=== PATIENT | female | born 1960 | race Caucasian/White ===

== ENCOUNTER 2017-10-31 08:30 | Emergency (ER) | payer BC ==
[~2017-10-31] VITALS: Ht 162.6 cm; Wt 84.0 kg
[~2017-10-31 08:30] MED LIST: CLIN300C10 PO; CLR10 PO; DEXA6TAB PO; LCTX PO; NYSS5 PO; RANI150S PO; TYLOTC500 PO; [UNRECOGNIZED DRUG - CODE] PO
[2017-10-31 08:33] VITALS: TEMP 36.4; Ht 162.6 cm; Wt 84.0 kg
[2017-10-31] MEDS ORDERED: FENTANYL CITRATE INJ 50 MCG/1 ML 2 ML VIAL IV STA (08:53)
[2017-10-31] MEDS ORDERED: DEXAMETHASONE SOD INJ 4 MG/ML VIAL IV STA (08:53)
[2017-10-31] MEDS ORDERED: SODIUM CHLORIDE 0.9% 1000ML 1,000 ML IV STA (08:53)
[2017-10-31] MEDS ORDERED: OPTIRAY 320 IV PRN (09:15)
[2017-10-31 09:34] LABS: BASO % 0.2 %; BASO ABS # 0.03 K/uL (0-0.2); COMPLETE YES; EOS % 1.5 %; HEMATOCRIT 50.6 % (37-47); IG% 0.2 %; LYMPH % 22.9 %; MEAN CELL VOLUME 92.2 fL (80-100); MEAN CORPUSCULAR HEMOGLOBIN 32.4 pg (25-34); MEAN CORPUSCULAR HGB CONC 35.2 g/dl (32-36); MEAN PLATELET VOLUME 8.8 fL (7.4-10.4); MONO % 5.9 %; NEUT % 69.3 %; PLATELET COUNT 378 K/uL (130-400); RED BLOOD COUNT 5.49 M/uL (4.2-5.4); WHITE BLOOD COUNT 12.65 K/uL (4.8-10.8)
--- NOTE | 2017-10-31 09:38 | EMERGENCY ROOM VISIT NOTE ---
History First contact with patient: 08:37 Chief Complaint: THROAT PAIN/INJURY Stated Complaint: THROAT TEARS History of Present Illness The patient is a 57 year old female who presents to the Emergency Room with complaints of sore throat. Pt states she had some mild throat irritation for the past 3 weeks that she attributed to sinus drainage,she treated herself at home with lozenges and salt water gargles, and her symptoms seemed to be improving. 4 days ago, the right side of her throat started to bother her, and has become progressively worse and severely painful. She also feels that her voice has become muffled since yesterday. She states the pain is now constant, worse with eating/drinking, talking, opening her mouth, unrelieved with Tylenol and Motrin, 06/21. Patient reports a history of peritonsillar abscess on the right side 2 years ago that required an inpatient hospital stay, she is concerned about this. She denies any fever/chills, headache, neck pain or stiffness, throat swelling, chest pain, difficulty breathing, nausea or vomiting , abdominal pain, diarrhea, urinary symptoms, rash. Review of Systems A complete 10 point review of systems was reviewed with the patient with pertinent positives and negatives as per history of present illness. All else were negative. Past Medical/Surgical History Hyperlipidemia, migraines, peritonsillar abscess Tubal ligation Social History Smoking Status: Current Every Day Smoker Alcohol Use: none Drug Use: none Marital Status: Housing Status: lives with family Occupation Status: employed Current/Historical Medications Scheduled Ondasetron Odt (Zofran Odt), 4 MG SL Q6H Prednisone (Prednisone Tab), 40 MG PO DAILY Scheduled PRN Hydrocodone/Acetaminophen 5MG/325MG ([place] 5MG/325MG), 1-2 TABLET PO Q6H PRN for svr Allergies Reviewed in chart Physical Exam Vital Signs Date Time Temp Pulse Resp B/P (MAP) Pulse Ox O2 Delivery O2 Flow Rate FiO2 10/31/17 11:40 77 17 117/87 95 10/31/17 10:26 69 18 113/80 95 Room Air 10/31/17 09:15 98 Room Air 10/31/17 08:36 98 Room Air 10/31/17 08:33 36.4 95 20 112/85 98 Room Air Physical Exam CONSTITUTIONAL: No acute distress. Moderately dehydrated. Pleasant and cooperative. HEENT: Normocephalic, atraumatic. Pupils equal, round and reactive to light, EOMI. TMs normal. Pharynx is erythematous, no tonsillar edema, exudate, unilateral swelling, uvular deviation, or trismus noted. Patient's voice does sound slightly muffled. Dry mucus membranes. NECK: Supple, full active range of motion without discomfort. Right-sided cervical adenopathy, tender to palpation. RESPIRATORY: Clear to auscultation bilaterally with no wheezing, crackles, rhonchi or stridor. Equal expansion bilaterally. CARDIOVASCULAR: Regular rate and rhythm with no murmurs, rubs or gallops. Normal peripheral perfusion. No edema. GASTROINTESTINAL: Soft, nontender, nondistended. No palpable masses or HSM. Bowel sounds present in all quadrants. MUSCULOSKELETAL: Full range of motion of all joints without discomfort. INTEGUMENTARY: No rash or other significant dermatologic conditions noted. NEUROLOGIC: Alert and oriented X 4 with normal affect. Cranial nerves II-XII grossly intact. No focal neurologic deficits noted. [] Medical Decision & Procedures ER Provider Diagnostic Interpretation: CT OF THE NECK WITH CONTRAST CLINICAL HISTORY: Severe right-sided sore throat. Evaluate for retropharyngeal abscess. COMPARISON STUDY: CT of the neck April 17, 2014. TECHNIQUE: Axial images of the neck were obtained following intravenous injection of 93 cc Optiray 320 IV. FINDINGS: Visualized portions of the intracranial contents are unremarkable. The epiglottis is normal. There is tonsillar mucosal hyperenhancement, greater on the right. There is mild adjacent edema within the right peritonsillar soft tissues. There is no abscess. There is slight asymmetric enlargement of the right submandibular gland. A few mildly enlarged bilateral level 2 cervical lymph nodes measure up to 1.2 cm in short axis diameter. There is no abscess within the neck. Thyroid gland is unremarkable. 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 There is distal reconstitution. Mild emphysema is noted within visualized portions of the lungs with an 8 mm subpleural right upper lobe nodule shown image 278. Small amount of secretions within the trachea are noted. IMPRESSION: 1. Tonsillar mucosal enhancement, greater on the right, with mild right peritonsillar edema. No abscess. The findings suggest acute tonsillitis. 2. 8 mm subpleural right upper lobe nodule. A follow-up chest CT in 6 months to ensure stability is recommended. 3. Mild to moderate centrilobular and paraseptal emphysema. 4. 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 Laboratory Results 10/31/17 09:15 Red Blood Count 5.49, Mean Corpuscular Volume 92.2, Mean Corpuscular Hemoglobin 32.4, Mean Corpuscular Hemoglobin Concent 35.2, Mean Platelet Volume 8.8, Neutrophils (%) (Auto) 69.3, Lymphocytes (%) (Auto) 22.9, Monocytes (%) (Auto) 5.9, Eosinophils (%) (Auto) 1.5, Basophils (%) (Auto) 0.2, Neutrophils # (Auto) 8.75, Lymphocytes # (Auto) 2.90, Monocytes # (Auto) 0.75, Eosinophils # (Auto) 0.19, Basophils # (Auto) 0.03 10/31/17 09:15 Test 10/31/17 09:15 10/31/17 09:24 White Blood Count 12.65 K/uL (4.8-10.8) Red Blood Count 5.49 M/uL (4.2-5.4) Hemoglobin 17.8 g/dL (12.0-16.0) Hematocrit 50.6 % (37-47) Mean Corpuscular Volume 92.2 fL (80-100) Mean Corpuscular Hemoglobin 32.4 pg (25-34) Mean Corpuscular Hemoglobin Concent 35.2 g/dl (32-36) Platelet Count 378 K/uL (130-400) Mean Platelet Volume 8.8 fL (7.4-10.4) Neutrophils (%) (Auto) 69.3 % Lymphocytes (%) (Auto) 22.9 % Monocytes (%) (Auto) 5.9 % Eosinophils (%) (Auto) 1.5 % Basophils (%) (Auto) 0.2 % Neutrophils # (Auto) 8.75 K/uL (1.4-6.5) Lymphocytes # (Auto) 2.90 K/uL (1.2-3.4) Monocytes # (Auto) 0.75 K/uL (0.11-0.59) Eosinophils # (Auto) 0.19 K/uL (0-0.5) Basophils # (Auto) 0.03 K/uL (0-0.2) RDW Standard Deviation 46.6 fL (36.4-46.3) RDW Coefficient of Variation 13.8 % (11.5-14.5) Immature Granulocyte % (Auto) 0.2 % Immature Granulocyte # (Auto) 0.03 K/uL (0.00-0.02) Est Creatinine Clear Calc Drug Dose 99.5 ml/min Estimated GFR () 114.7 Estimated GFR (Non- 99.0 BUN/Creatinine Ratio 7.7 (10-20) Calcium Level 8.7 mg/dl (8.5-10.1) Monoscreen NEG (NEG) Bedside Hemoglobin 16.7 g/dl (12.0-16.0) Bedside Hematocrit 49 % (37-47) Bedside Sodium 141 mEq/L (135-144) Bedside Potassium 3.9 mEq/L (3.3-5.0) Bedside Chloride 103 mEq/L (101-112) Bedside Total CO2 27 mEq/l (24-31) Anion Gap 16.0 mmol/L (16-25) Bedside Blood Urea Nitrogen 3 mg/dl (7-18) Bedside Creatinine 0.7 mg/dl (0.6-1.3) Bedside Glucose (other) 113 mg/dl (70-99) Bedside Ionized Calcium (Frank) 1.15 mmol/l (1.12-1.32) Medications Administered Medications (Trade) Dose Ordered Sig/Harvinder Route Start Time Stop Time Status Last Admin Dose Admin Sodium Chloride 1,000 ml @ 999 mls/hr Q1H1M STAT IV 10/31/17 08:53 10/31/17 09:53 DC 10/31/17 09:34 999 MLS/HR Fentanyl Citrate (Fentanyl Inj) 50 mcg NOW STAT IV 10/31/17 08:53 10/31/17 08:58 DC 10/31/17 09:33 50 MCG Dexamethasone Sodium Phosphate (Decadron Inj) 10 mg NOW STAT IV 10/31/17 08:53 10/31/17 08:59 DC 10/31/17 09:32 10 MG Acetaminophen/ Hydrocodone Bitart ([place] 5/325 Tab) 1 tab NOW STAT PO 10/31/17 11:24 10/31/17 11:25 DC 10/31/17 11:38 1 TAB Ondansetron HCl (Zofran Inj) 4 mg NOW STAT IV 10/31/17 11:29 10/31/17 11:30 DC 10/31/17 11:38 4 MG Medical Decision CC: Patient presenting with complaint of throat pain Interpretation of Labs: Mild leukocytosis, no anemia, no significant electrolyte abnormalities, normal renal function. Rapid strep screen negative. [place] screen negative. Differential Diagnosis: Includes, but not limited to viral pharyngitis, streptococcal pharyngitis, tonsillitis, retropharyngeal abscess or peritonsillar abscess, cervical adenitis, Medication Reconciliation: I attest that I have personally reviewed the patient' s current medication list. Vital signs review: I reviewed the patient's vital signs and interpret them as follows: T: Afebrile; BP: Normotensive; HR: Mildly tachycardic; RR: Within normal limits; Pulse Ox: Within normal limits on room air. Blood pressure screening: The patient was found to have normal blood pressure on screening and does not require follow-up for repeat blood pressure check. Summary: Patient was evaluated at bedside, history and physical exam performed. She is afebrile. Patient is alert and oriented, in no acute distress and nontoxic-appearing, resting calmly in the room. Patient's voice does sound slightly muffled, but she is able to manage her secretions and there is no concern for airway compromise. The posterior pharynx is erythematous, but there is no trismus, uvular deviation , or edema to suggest a peritonsillar abscess. Patient has right-sided cervical adenopathy and points at her neck at the jaw level stating that is where her pain is. Given her status is a smoker, as well as her history of a complicated BARREL FILLER HEAD in the past, CT with IV contrast was ordered to rule out a retropharyngeal abscess. Orders were placed at bedside for labs, IV fluids for hydration, IV fentanyl for pain, IV Decadron. Patient discussed with Dr. Meza, who agrees with my assessment and plan. Labs reviewed as above, mild leukocytosis, but otherwise unremarkable. Negative strep and negative Monospot. CT imaging is negative for abscess, shows tonsillitis. Given her lack of fevers and negative strep testing, suspect viral etiology. Patient reassessed multiple times throughout ED stay, patient reports she is much improved after fluids and pain medication. Tachycardia resolved after IV fluids. I discussed all results with the patient and plan for discharge home, encouraging her to follow closely with her PCP. Rx for steroids and [place] for pain management sent to the patient's pharmacy. Patient was also instructed on return precautions that should prompt her to return to the emergency department, she verbalized understanding. Patient was discharged home in stable condition and ambulatory. Head Trauma GCS Score: 15 Medication Reconcilliation Current Medication List: was personally reviewed by me Impression Primary Impression: Acute tonsillitis Departure Information Dispostion Home / Self-Care Condition GOOD Prescriptions Ondasetron Odt (ZOFRAN ODT) 4 Mg Tab 4 MG SL Q6H for Nausea, #10 TAB Prov: Eliza Lopez CRNP 10/31/17 Prednisone (Prednisone Tab) 20 Mg Tab 40 MG PO DAILY for 4 Days, #8 TAB 2 TABS DAILY FOR 4 DAYS Prov: Eliza Lopez, RODOLFO 10/31/17 Hydrocodone/Acetaminophen 5MG/325MG ([place] 5MG/325MG) Tab 1-2 TABLET PO Q6H Y for svr, #15 TAB For Initial Treatment Prov: Eliza Lopez CRNP 10/31/17 Referrals RV. Yuan MD (PCP) Patient Instructions ED Pharyngitis Viral, ED Tonsillitis, [facility] Additional Instructions You have been treated in the emergency department today for your sore throat. CT scan is negative for any abscess, but does show tonsillitis (inflammation of the tonsils), Your rapid strep screen was read as negative. This will be sent to the lab for culture, you would called in the next 2-3 days with any abnormal results. You have been prescribed prednisone (steroid) to help with your throat pain and inflammation. Take as directed for the full course. You have been prescribed [place] to be used for severe pain. This is a narcotic, do not drive, operate machinery, or drink alcohol while you're taking this medicine, as this may make you drowsy. Take as prescribed. Ibuprofen(Motrin, Advil) may be used for fever or pain. Use 600mg every 6-8 hours as needed. Take with food. Avoid using more than 2400mg in a 24 hour period. Do not use 2400mg per day for more than three consecutive days without physician direction. Prolonged inappropriate use can lead to stomach upset or ulcers. Use warm salt water gargles. And drink warm tea with honey to help soothe your throat. You may also try [id number] throat lozenges such as Cepacol, and Chloraseptic sprays to help numb the back of her throat for pain control. Return to emergency department if your symptoms worsen, including difficulty breathing, severe worsening pain, if you are unable to swallow liquids or your own saliva, fevers >101.5, or any other concerns. Work Instructions Return To Work: 2 days Problem Qualifiers Primary Impression: Acute tonsillitis Pharyngitis/tonsillitis etiology: unspecified etiology Qualified Codes: J03.90 - Acute tonsillitis, unspecified
[2017-10-31 09:40] LABS: ISTAT CREATININE 0.7 mg/dl (0.6-1.3); ISTAT HEMOGLOBIN 16.7 g/dl (12.0-16.0); ISTAT IONIZED CALCIUM 1.15 mmol/l (1.12-1.32)
[2017-10-31 09:53] LABS: BUN/CREATININE RATIO 7.7 (10-20); CALCIUM 8.7 mg/dl (8.5-10.1); CREATININE 0.67 mg/dl (0.60-1.20); POTASSIUM 3.8 mmol/L (3.5-5.1)
--- NOTE | 2017-10-31 10:34 | DIAGNOSTIC IMAGING REPORT ---
CT OF THE NECK WITH CONTRAST CLINICAL HISTORY: Severe right-sided sore throat. Evaluate for retropharyngeal abscess. COMPARISON STUDY: CT of the neck April 17, 2014. TECHNIQUE: Axial images of the neck were obtained following intravenous injection of 93 cc Optiray 320 IV. FINDINGS: Visualized portions of the intracranial contents are unremarkable. The epiglottis is normal. There is tonsillar mucosal hyperenhancement, greater on the right. There is mild adjacent edema within the right peritonsillar soft tissues. There is no abscess. There is slight asymmetric enlargement of the right submandibular gland. A few mildly enlarged bilateral level 2 cervical lymph nodes measure up to 1.2 cm in short axis diameter. There is no abscess within the neck. Thyroid gland is unremarkable. 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 There is distal reconstitution. Mild emphysema is noted within visualized portions of the lungs with an 8 mm subpleural right upper lobe nodule shown image 278. Small amount of secretions within the trachea are noted. IMPRESSION: 1. Tonsillar mucosal enhancement, greater on the right, with mild right peritonsillar edema. No abscess. The findings suggest acute tonsillitis. 2. 8 mm subpleural right upper lobe nodule. A follow-up chest CT in 6 months to ensure stability is recommended. 3. Mild to moderate centrilobular and paraseptal emphysema. 4. 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 Electronically signed by: Kiko Do M.D. 10/31/2017 10:32 AM Dictated Date/Time: 10/31/2017 10:24 AM
[2017-10-31] MEDS ORDERED: HYDR-5688 PO (10:42)
[2017-10-31] MEDS ORDERED: PRED20TA2 PO ×2 (10:42→10:50)
[2017-10-31] MEDS ORDERED: HYDROCODONE/ACETAMOPHEN 5/325MG TAB PO STA (11:24)
[2017-10-31] MEDS ORDERED: ONDANSETRON INJ 2 MG/ML 2 ML VIAL IV STA (11:29)
[2017-10-31] MEDS ORDERED: ONDA4TAB10 SL (11:29)
[2017-10-31 11:40] VITALS: BP 117/87; PULSE 77; O2SAT 95
== END 2017-10-31 11:54 | disposition home or self-care (01) ==
LOC: C.EDB 08:31 → C.EDA 11:54
DX: J03.90 Acute tonsillitis, unspecified (principal); F17.200 Nicotine dependence, unspecified, uncomplicated; Z98.51 Tubal ligation status